=== PATIENT | male | born 2000 | race Native Hawaiian/Other Pacific Islander ===

== ENCOUNTER 2019-12-07 20:28 | Emergency (ER) | payer SELFPAY ==
[~2019-12-07] VITALS: Ht 188 cm; Wt 93.0 kg
[2019-12-07 21:07] VITALS: BP 136/60; TEMP 98.1
== END 2019-12-07 21:52 | disposition home or self-care (01) ==
LOC: ED 20:28
DX: L02.01 Cutaneous abscess of face (principal)
CPT/HCPCS: 99282

== ENCOUNTER 2020-11-29 16:52 | Emergency (ER) | payer OTHER ==
[~2020-11-29] VITALS: Ht 188 cm; Wt 93.0 kg
[2020-11-29 17:05] VITALS: BP 114/60; TEMP 98
== END 2020-11-29 19:10 | disposition home or self-care (01) ==
LOC: ED 16:52
DX: Z53.21 Procedure and treatment not carried out due to patient leaving prior to being seen by health care provider (principal); U07.1 COVID-19
CPT/HCPCS: 99281